=== PATIENT | male | born 1985 | race Caucasian/White ===

== ENCOUNTER 2022-04-14 15:57 | Inpatient (IN) ==
[2022-04-14 16:32] LABS: BASOPHILS % (AUTO) 0.2 % (0.2-1.0); EOSINOPHILS % (AUTO) 0.1 % (0.9-2.9); HEMATOCRIT 47.1 % (42.0-54.0); HEMOGLOBIN 16.3 g/dL (13.5-18.0); LYMPHOCYTES # (AUTO) 0.6 X10^3/uL (1.3-2.9); MEAN CORPUSCULAR HGB CONC 34.5 g/dL (33.0-35.0); MEAN PLATELET VOLUME 10.1 fL (7.4-11.0); MONOCYTES # (AUTO) 0.9 x10^3/uL (0.3-0.8); MONOCYTES % (AUTO) 4.4 % (0.0-13.0); NEUTROPHILS # (AUTO) 18.8 x10^3/uL (2.2-4.8); NEUTROPHILS % (AUTO) 92.3 % (42.0-75.0); RED BLOOD COUNT 5.42 X10^6/uL (4.7-6.0); RED CELL DISTRIBUTION WIDTH 13.3 % (11.6-16.5); WHITE BLOOD COUNT 20.4 X10^3/uL (3.6-10.0)
[2022-04-14 16:45] LABS: PLATELET MORPHOLOGY COMMENT NORMAL (NORMAL)
[2022-04-14] MEDS ORDERED: ZOFRAN INJ 4 MG VIAL IVP ONE (16:52)
[2022-04-14] MEDS ORDERED: MORPHINE SULFATE INJ 2 MG INJ IVP ONE (16:52)
[2022-04-14] MEDS ORDERED: ZOFRAN INJ 4 MG VIAL ONE (16:55)
[2022-04-14] MEDS ORDERED: MORPHINE SULFATE INJ 2 MG INJ ONE (16:55)
--- NOTE | 2022-04-14 17:10 | DR.ABDMALE ---
HPI Time seen Time Seen by Provider: 04/14/22 17:08 PCP Primary Care Physician: JOYCE OLSON HPI comment HPI Comment: A 37 y/o male presenting with c/o epigastric pain onset early hours this a.m. He had an outpt. abd./pelvic CT Scan done today that was interpreted as showing mild dilatation of the GB with fat stranding, to suspect cholecystitis. His provider asked him to go to the ED, thus he came over here. Complaint Chief Complaint:: PT. C/O UPPER ABDOMINAL PAIN THAT RADIATES THROUGH TO BACK. P T. HAD AN OUT PATIENT CT SCAN DONE TODAY IN [facility] WHICH SHOWS MILDLY DILATED GALLBLADDER WITH FAT STRADNING AND TO SUSPECT CHOLECYSTITIS. PT. ALSO C/O NAUSEA/VOMITING. Self Treatment fo Chief Complaint: SEEN PCP IN OFFICE, OUT PATIENT CT SCAN, ROSE SERRANO COVID-19 Coronavirus risk:travel/contact w/high risk person: No Has patient experienced Coronavirus symptoms: No Reviewed Nurses Notes Review: Yes Mode of arrival Mode of Arrival: Ambulatory Timing Onset of Chief Complaint: 04/14/22 Came on: Suddenly Location Location: Epigastric Modifying factors Worsening Factors: Nothing Improving Factors: Nothing PMH PMH Past Medical History: Yes Past Medical History: GERD Past Surgical History: Yes Surgical History: Ortho Surgery Family History History of Family Medical Conditions: No Social History Does patient currently use any type of tobacco product: No Have you used tobacco products in the last 12 months: No Type of Tobacco Use: None Does any household member use tobacco: No Alcohol Use: None Do you use any recreational Drugs:: No Lives With: Spouse Lives Where: Home Travel Risk Coronavirus risk:travel/contact w/high risk person: No Has patient experienced Coronavirus symptoms: No Infectious screening In the last 2 months have you had wt loss of >10#?: NO Have you had fever, night sweats or hemotysis?: No Have you traveled outside the country in the last 6 months?: No Isolation: Standard ROS Review of Systems Constitutional: No Symptoms Reported Eyes: No Symptoms Reported ENTM: No Symptoms Reported Respiratoy: No Symptoms Reported Cardiovascular: No Symptoms Reported Gastrointestinal/Abdominal: Abdominal Pain Genitourinary: No Symptoms Reported Neurological: No Symptoms Reported Musculoskeletal: No Symptoms Reported Integumentary: No Symptoms Reported Hematologic/Lymphatic: No Symptoms Reported Endocrine: No Symptoms Reported Psychiatric: No Symptoms Reported All Other Systems: Reviewed and Negative PE Vital Signs Vital Signs: Temp Pulse Pulse Resp BP BP BP 04/28/15 07:52 142/74 04/28/15 07:02 142/74 04/16/22 08:00 97.8 F 105 H 20 119/68 04/16/22 08:27 04/16/22 08:15 18 04/16/22 07:04 19 04/16/22 06:04 19 04/16/22 04:27 19 04/16/22 04:00 98.4 F 106 H 20 118/73 04/16/22 03:57 19 04/16/22 00:00 98.8 F 105 H 18 120/68 04/15/22 19:50 99.4 F 114 H 19 118/69 04/15/22 18:50 99.0 F 110 H 19 123/83 04/15/22 20:00 98.9 F 113 H 20 114/66 04/15/22 20:04 19 04/15/22 19:00 04/15/22 19:04 19 04/15/22 18:06 99.3 F 118 H 18 118/68 04/15/22 16:58 98.8 F 118 H 18 139/78 04/15/22 15:50 98.6 F 124 H 18 140/81 04/15/22 15:35 98.6 F 126 H 18 144/79 04/15/22 15:20 98.8 F 122 H 18 141/80 04/15/22 15:05 99.4 F 121 H 18 126/56 04/15/22 14:50 99.4 F 120 H 18 131/74 04/15/22 14:39 121 H 18 130/70 04/15/22 14:34 123 H 18 134/74 04/15/22 14:29 120 H 18 127/69 04/15/22 14:24 124 H 18 128/69 04/15/22 14:19 123 H 16 127/69 04/15/22 14:14 120 H 17 123/62 04/15/22 14:09 98.0 F 121 H 17 119/60 04/15/22 12:19 20 04/15/22 11:50 142 H 18 147/82 04/15/22 08:34 22 04/15/22 08:00 98.1 F 127 H 18 135/86 04/15/22 07:00 04/15/22 08:04 22 04/15/22 04:00 22 04/15/22 04:00 99.7 F H 154 H 22 128/72 04/15/22 04:30 22 04/15/22 04:00 22 04/15/22 02:34 18 04/15/22 02:04 18 04/15/22 01:00 144/86 04/15/22 00:00 98.8 F 134 H 18 148/92 04/14/22 22:05 20 04/14/22 20:00 101.3 F H 140 H 20 143/92 04/14/22 19:33 04/14/22 21:35 21 04/14/22 17:39 17 04/14/22 15:57 97.4 F L 123 H 20 141/94 Pulse Ox O2 Del Method 04/28/15 07:52 04/28/15 07:02 04/16/22 08:00 97 Room Air 04/16/22 08:27 Room Air 04/16/22 08:15 04/16/22 07:04 04/16/22 06:04 04/16/22 04:27 04/16/22 04:00 96 Room Air 04/16/22 03:57 04/16/22 00:00 95 Room Air 04/15/22 19:50 97 Room Air 04/15/22 18:50 97 Room Air 04/15/22 20:00 98 Room Air 04/15/22 20:04 04/15/22 19:00 Room Air 04/15/22 19:04 04/15/22 18:06 96 Room Air 04/15/22 16:58 96 Room Air 04/15/22 15:50 94 L Room Air 04/15/22 15:35 95 Room Air 04/15/22 15:20 98 Room Air 04/15/22 15:05 98 Room Air 04/15/22 14:50 97 Room Air 04/15/22 14:39 97 Nasal Cannula 04/15/22 14:34 97 Nasal Cannula 04/15/22 14:29 95 Nasal Cannula 04/15/22 14:24 95 Nasal Cannula 04/15/22 14:19 94 L 04/15/22 14:14 97 04/15/22 14:09 96 09/22/22 12:19 04/15/22 11:50 95 Room Air 04/15/22 08:34 04/15/22 08:00 97 Room Air 04/15/22 07:00 Room Air 04/15/22 08:04 04/15/22 04:00 04/15/22 04:00 92 L Room Air 04/15/22 04:30 04/15/22 04:00 04/15/22 02:34 04/15/22 02:04 04/15/22 01:00 04/15/22 00:00 96 Room Air 04/14/22 22:05 04/14/22 20:00 98 Room Air 04/14/22 19:33 Room Air 04/14/22 21:35 04/14/22 17:39 04/14/22 15:57 100 Room Air General Limitations: No Limitations General Appearance: Alert and In No Apparent Distress Head Head Exam: Normal Inspection, Atraumatic and Normocephalic Eyes Eye exam: Normal Appearance and EOMI ENT ENT Exam: Normal Exam, Normal Oropharynx, Normal External Ear Exam and Mucous Membranes Moist Neck Neck Exam: Normal Inspection, Full ROM and Trachea Midline Chest Chest Inspection: Normal Inspection and Symmetric Chest Wall Rise Respiratory Respiratory Exam: Normal Lung Sounds Bilat Cardiovascular Cardiovascular Exam: Regular Rate, Normal Rhythm, Normal Heart Sounds, +S1 and +S2 Abdominal Exam Abdominal Exam: Normal Inspection, Normal Bowel Sounds and Soft; negative Distention, Tenderness, Guarding, Rebound, Rigidity, Dimnished Bowel Sounds, Hyperactive Bowel Sounds, Hypoactive Bowel Sounds, Organomegaly, Trauma, Incision, Ascites, Mass, Bruit, Pulsatile Mass or Hernia Rectal Rectal Exam: Deferred Back Back Exam: Normal Inspection and Full ROM Extremeties Extremities Exam: Normal Inspection and Full ROM Exam: Male: Deferred Neurologic Neurological Exam: Alert and Oriented X3 Psychiatric Psychiatric Exam: Normal Affect and Normal Mood Skin Skin Exam: Dry, Intact and Normal Color COURSE Treatment Treatment: I discussed the case/presentation with our staff surgeon (Dr. Brown), he suggested admitting the pt. Admit orders have been written after discussing recommendations with the pt. Reevaluation 1st: Unchanged Education/Counseling Education/Counseling: Patient, Education and Counseling Educated On: Treatment, Diagnosis, Prognosis and Needs for Follow Up ROR Labs Reviewed Result Diagrams: 04/18/22 05:10 04/18/22 05:10 Laboratory: 04/14/22 23:05 Blood Blood Culture - Final 04/14/22 23:00 Blood Blood Culture - Final WBC 16.9 X10^3/uL (3.6-10.0) H 04/16/22 05:16 RBC 4.51 X10^6/uL (4.7-6.0) L 04/16/22 05:16 Hgb 13.4 g/dL (13.5-18.0) L D 04/16/22 05:16 Hct 38.9 % (42.0-54.0) L 04/16/22 05:16 MCV 86.4 fL (80.0-100.0) 04/16/22 05:16 MCH 29.7 pg (27.0-34.0) 04/16/22 05:16 MCHC 34.3 g/dL (33.0-35.0) 04/16/22 05:16 RDW 13.6 % (11.6-16.5) 04/16/22 05:16 Plt Count 112 X10^3/uL (150.0-450.0) L 04/16/22 05:16 Plt Count Comment Decreased (ADEQUATE) 04/16/22 05:16 MPV 10.5 fL (7.4-11.0) 04/16/22 05:16 Neut % (Auto) 92.9 % (42.0-75.0) H 04/16/22 05:16 Lymph % (Auto) 1.7 % (21.0-51.0) L 04/16/22 05:16 [place] % (Auto) 4.8 % (0.0-13.0) 04/16/22 05:16 Eos % (Auto) 0.5 % (0.9-2.9) L 04/16/22 05:16 Baso % (Auto) 0.1 % (0.2-1.0) L 04/16/22 05:16 Neut # (Auto) 15.7 x10^3/uL (2.2-4.8) H 04/16/22 05:16 Lymph # (Auto) 0.3 X10^3/uL (1.3-2.9) L 04/16/22 05:16 [place] # (Auto) 0.8 x10^3/uL (0.3-0.8) 04/16/22 05:16 Eos # (Auto) 0.1 x10^3/uL (0.0-0.2) 04/16/22 05:16 Baso # (Auto) 0.0 X10^3/uL (0.0-0.1) 04/16/22 05:16 Absolute Nucleated RBC 0.0 /100WBC 04/16/22 05:16 Total Counted 100 04/16/22 05:16 Neutrophils % (Manual) 72 % (39-76) 04/16/22 05:16 Band Neutrophils % 22 % (0-10) H 04/16/22 05:16 Lymphocytes % (Manual) 2 % (13-43) L 04/16/22 05:16 Monocytes % (Manual) 4 % (4-9) 04/16/22 05:16 Plt Morphology Comment Normal (NORMAL) 04/16/22 05:16 RBC Morphology Normal (NORMAL) 04/16/22 05:16 Sodium 136 mmol/L (136-145) 04/16/22 05:16 Corrected Sodium 136 mmol/L (136-145) 04/16/22 05:16 Potassium 3.8 mmol/L (3.5-5.1) 04/16/22 05:16 Chloride 100 mmol/L (98-107) 04/16/22 05:16 Carbon Dioxide 32.8 mmol/L (21-32) H 04/16/22 05:16 BUN 12 mg/dL (7-18) 04/16/22 05:16 Creatinine 1.01 mg/dL (0.70-1.30) 04/16/22 05:16 Est GFR (MDRD) Af Amer > 60 (>60) 04/16/22 05:16 Est GFR (MDRD) Non-Af > 60 (>60) 04/16/22 05:16 Glucose 111 mg/dL (65-99) H 04/16/22 05:16 Calcium 7.8 mg/dL (8.5-10.1) L 04/16/22 05:16 Corrected Calcium 8.8 mg/dL (8.5-10.1) 04/16/22 05:16 Magnesium 1.5 mg/dL (1.7-2.9) L 04/16/22 05:16 Total Bilirubin 4.50 mg/dL (0.2-1.0) H 04/16/22 05:16 AST 88 Units/L (15-37) H 04/16/22 05:16 ALT 153 Units/L (12-78) H 04/16/22 05:16 Alkaline Phosphatase 110 Units/L (46-116) 04/16/22 05:16 Total Protein 5.9 g/dL (6.4-8.2) L 04/16/22 05:16 Albumin 2.7 g/dL (3.4-5.0) L 04/16/22 05:16 Globulin 3.2 g/dL (2.5-4.5) 04/16/22 05:16 Albumin/Globulin Ratio 0.8 Ratio (1.1-2.1) L 04/16/22 05:16 Amylase 39 Units/L (25-115) 04/14/22 16:46 Lipase 77 Units/L (73-393) 04/14/22 16:46 Free T4 1.68 ng/dL (0.76-1.46) H 04/15/22 05:48 Thyroxine (T4) 12.8 ug/dL (4.7-13.3) 04/15/22 05:48 TSH 3rd Generation 0.856 uIU/mL (0.358-3.74) 04/15/22 05:48 Specimen Type Clean catch urine 04/14/22 17:54 Urine Color Yellow (YELLOW) 04/14/22 17:54 Urine Appearance Clear (CLEAR) 04/14/22 17:54 Urine pH 5.0 (5.0 - 8.0) 04/14/22 17:54 Ur Specific [place] 1.025 (1.000-1.030) 04/14/22 17:54 Urine Protein 1+ (NEGATIVE) 04/14/22 17:54 Urine Glucose (UA) Negative (NEGATIVE) 04/14/22 17:54 Urine Ketones 3+ (NEGATIVE) 04/14/22 17:54 Urine Blood 1+ (NEGATIVE) 04/14/22 17:54 Urine Nitrite Negative (NEGATIVE) 04/14/22 17:54 Urine Bilirubin Negative (NEGATIVE) 04/14/22 17:54 Urine Urobilinogen Normal (NORMAL) 04/14/22 17:54 Ur Leukocyte Esterase Negative (NEGATIVE) 04/14/22 17:54 Urine RBC 0-2 /HPF (0-3) 04/14/22 17:54 Urine WBC 0-2 /HPF (0-5) 04/14/22 17:54 Ur Squamous Epith Cells Rare /HPF (NEGATIVE) 04/14/22 17:54 Urine Bacteria Negative /HPF (NEGATIVE) 04/14/22 17:54 Urine Mucus Few /HPF (NEGATIVE) 04/14/22 17:54 Ur Culture Indicated? No/not indicated 04/14/22 17:54 SARS-CoV-2 (PCR) Negative (NEGATIVE) 04/14/22 17:54 Influenza Type A (PCR) Negative (NEGATIVE) 04/14/22 17:54 Influenza Type B (PCR) Negative (NEGATIVE) 04/14/22 17:54 RSV (PCR) Negative (NEGATIVE) 04/14/22 17:54 Tissue Pathology To follow 04/15/22 13:38 Opioid Opioid Risk Tool Age (Blayne box if 16-45): Yes History of Preadolescent Sexual Abuse: No Total: 1 Total Score Risk Category: Low Risk Copyright: [facility] predicting aberrant behaviors Discharge Plan Diagnosis Discharge Problem: Abdominal pain, epigastric Discharge Plan Patient Disposition: ADMITTED INPATIENT Condition: Stable ADDITIONAL NOTES Additional Notes Additional Notes: Name: JERRI ALTAMIRANO#: [id number]: [id number]: 1985Sex: MLocation: EROrder Number(s): [id number](s):GALL BLADDER Ordering Physician: NATHANIEL ESTEBAN Primary Care: JOYCE OLSON Service Date: 04/14/22 Service Time: 1653 HISTORY Upper abdominal pain STUDY GALL BLADDER COMPARISON None TECHNIQUE Multiple nina scale and color flow Doppler images of the right upper quadrant of the abdomen were obtained. FINDINGS PANCREAS: Partially obscured but grossly unremarkable. LIVER: Liver is normal in size. No significant abnormality. PORTAL VEIN: Normal hepatopetal flow in the main portal vein. GALLBLADDER: No significant abnormality. BILE DUCTS: Common bile duct measures 2 mm. RIGHT KIDNEY:No significant abnormality OTHER FINDINGS:None IMPRESSION No significant sonographic abnormality of the right upper quadrant Electronically signed by: Kenney Shearer (Apr 14, 2022 17:41:30) Report Electronically signed: 04/14/22 [id number] CC: Nathaniel Esteban
[2022-04-14 17:18] LABS: ALANINE AMINOTRANSFERASE 23 Units/L (12-78); ALBUMIN 4.4 g/dL (3.4-5.0); ALKALINE PHOSPHATASE 94 Units/L (46-116); AMYLASE 39 Units/L (25-115); ASPARTATE AMINO TRANSFERASE 20 Units/L (15-37); BLOOD UREA NITROGEN 8 mg/dL (7-18); CALCIUM 8.7 mg/dL (8.5-10.1); CARBON DIOXIDE 30.9 mmol/L (21-32); CHLORIDE 104 mmol/L (98-107); COR NA(FOR HYPERGLY) 140 mmol/L (136-145); CREATININE 0.81 mg/dL (0.70-1.30); LIPASE 77 Units/L (73-393); SODIUM 140 mmol/L (136-145); TOTAL PROTEIN 7.7 g/dL (6.4-8.2); eGFR NON BLACK RACES > 60 (>60)
--- NOTE | 2022-04-14 17:43 | US ---
HISTORYUpper abdominal painSTUDYGALL BLADDERCOMPARISONNoneTECHNIQUEMultiple nina scale and color flow Doppler images of the right upper quadrant of the abdomen were obtained.FINDINGSPANCREAS: Partially obscured but grossly unremarkable.LIVER: Liver is normal in size. No significant abnormality.PORTAL VEIN: Normal hepatopetal flow in the main portal vein.GALLBLADDER: No significant abnormality.BILE DUCTS: Common bile duct measures 2 mm.RIGHT KIDNEY:No significant abnormalityOTHER FINDINGS:NoneIMPRESSIONNo significant sonographic abnormality of the right upper quadrantElectronically signed by: Kenney Shearer (Apr 14, 2022 17:41:30)
[2022-04-14 18:16] LABS: BILIRUBIN,URINE NEGATIVE (NEGATIVE); BLOOD/HEMOGLOBIN,URINE 1+ (NEGATIVE); GLUCOSE, URINE NEGATIVE (NEGATIVE); KETONES,URINE 3+ (NEGATIVE); LEUKOCYTE ESTERASE ,URINE NEGATIVE (NEGATIVE); NITRITES,URINE NEGATIVE (NEGATIVE); PROTEIN,URINE 1+ (NEGATIVE); UROBILINOGEN,URINE NORMAL (NORMAL)
[2022-04-14 18:20] LABS: APPEARANCE,URINE CLEAR (CLEAR); COLOR,URINE YELLOW (YELLOW)
[2022-04-14 18:29] LABS: RBC,URINE 0-2 /HPF (0-3)
[2022-04-14 18:30] LABS: BACTERIA,URINE NEGATIVE /HPF (NEGATIVE); SQUAMOUS EPITHELIAL CELL,UR RARE /HPF (NEGATIVE)
[2022-04-14] MEDS: D5 1/2 NS 1,000 ML 1,000 ML IV SCH (21:34)
[2022-04-14] MEDS: DILAUDID INJ IVP PRN (21:35)
[2022-04-14] MEDS: ZOFRAN INJ 4 MG VIAL IVP PRN (21:38)
[2022-04-14] MEDS: LEVAQUIN PREMIX IV 500 MG 500 MG/100 ML BAG IV SCH (21:40)
[2022-04-15] MEDS ORDERED: CATAPRES TAB 0.1 MG PO ONE (00:19)
[2022-04-15 00:34] VITALS: BMI 26.5
[2022-04-15] MEDS: DILAUDID INJ IVP PRN (02:04)
[2022-04-15] MEDS: ZOFRAN INJ 4 MG VIAL IVP PRN ×2 (02:05→22:43)
[2022-04-15] MEDS: MORPHINE SULFATE INJ 2 MG INJ IVP PRN ×2 (04:00→08:04)
[2022-04-15] MEDS ORDERED: MORPHINE SULFATE INJ 4 MG ONE (04:02)
[2022-04-15] MEDS: D5 1/2 NS 1,000 ML 1,000 ML IV SCH ×5 (05:47→23:07)
[2022-04-15 06:31] LABS: BASOPHILS % (AUTO) 0.1 % (0.2-1.0); HEMOGLOBIN 15.7 g/dL (13.5-18.0); LYMPHOCYTES # (AUTO) 0.4 X10^3/uL (1.3-2.9); LYMPHOCYTES % (AUTO) 2.6 % (21.0-51.0); MEAN CORPUSCULAR HEMOGLOBIN 30.6 pg (27.0-34.0); MEAN CORPUSCULAR HGB CONC 35.6 g/dL (33.0-35.0); MEAN PLATELET VOLUME 10.7 fL (7.4-11.0); MONOCYTES # (AUTO) 0.3 x10^3/uL (0.3-0.8); MONOCYTES % (AUTO) 2.1 % (0.0-13.0); NEUTROPHILS # (AUTO) 14.7 x10^3/uL (2.2-4.8); NEUTROPHILS % (AUTO) 95.2 % (42.0-75.0); RED BLOOD COUNT 5.12 X10^6/uL (4.7-6.0); RED CELL DISTRIBUTION WIDTH 13.3 % (11.6-16.5); WHITE BLOOD COUNT 15.4 X10^3/uL (3.6-10.0)
[2022-04-15 06:36] LABS: ALANINE AMINOTRANSFERASE 190 Units/L (12-78); ALBUMIN 3.6 g/dL (3.4-5.0); ALKALINE PHOSPHATASE 141 Units/L (46-116); ASPARTATE AMINO TRANSFERASE 261 Units/L (15-37); BLOOD UREA NITROGEN 11 mg/dL (7-18); CARBON DIOXIDE 27.3 mmol/L (21-32); COR NA(FOR HYPERGLY) 138 mmol/L (136-145); CREATININE 0.95 mg/dL (0.70-1.30); SODIUM 137 mmol/L (136-145); eGFR NON BLACK RACES > 60 (>60)
[2022-04-15 07:09] LABS: CHLORIDE 100 mmol/L (98-107)
[2022-04-15 07:53] LABS: BAND NEUTROPHILS % 12 % (0-10); PLATELET MORPHOLOGY COMMENT NORMAL (NORMAL)
--- NOTE | 2022-04-15 08:29 | DR.PROGNOT ---
Hospital Progress Notes - Progress Note for Day of: Progress Note Date: 04/15/22 - Chief Complaint Chief Complaint: was having severe pain last night required strong narcotics .. his Bilirubin and liver enzymes went up . maybe passed stone in the CBD . Bilir 3.3... WBC 15.4. had low grade fever . - Past Medical Family Social History Past Med/Fam/Surg Hx: No changes since H&P Allergies: Allergies No Known Drug Allergies Allergy (Verified 04/14/22 16:00) - Review Of Systems ROS: No change since H&P - Vital Signs Vital Signs: Temperature 99.7 F Pulse Rate [Right Radial] 154 Pulse Rate 123 Respiratory Rate 22 Blood Pressure [Left Arm] 128/72 Blood Pressure 141/94 O2 Sat by Pulse Oximetry 92 - Physical Exam Oriented: Normal Eyes: Other (mild jaundice ..) Ear: Normal Nose: Normal Throat: Normal Respiratory: Normal Cardiovascular: Normal : Normal GI:Auscultation: Normal GI: Tenderness: RUQ (soft abdomen with RUQ and epigastric tenderness .. BS hypoactive ..) Speech Pattern: Clear, Appropriate - Laboratory and Diagnostics Result Diagrams: 04/15/22 05:48 04/15/22 05:48 Labs: Laboratory WBC 15.4 X10^3/uL (3.6-10.0) H 04/15/22 05:48 RBC 5.12 X10^6/uL (4.7-6.0) 04/15/22 05:48 Hgb 15.7 g/dL (13.5-18.0) 04/15/22 05:48 Hct 44.0 % (42.0-54.0) 04/15/22 05:48 MCV 86.0 fL (80.0-100.0) 04/15/22 05:48 MCH 30.6 pg (27.0-34.0) 04/15/22 05:48 MCHC 35.6 g/dL (33.0-35.0) H 04/15/22 05:48 RDW 13.3 % (11.6-16.5) 04/15/22 05:48 Plt Count 140 X10^3/uL (150.0-450.0) L 04/15/22 05:48 Plt Count Comment Decreased (ADEQUATE) 04/15/22 05:48 MPV 10.7 fL (7.4-11.0) 04/15/22 05:48 Neut % (Auto) 95.2 % (42.0-75.0) H 04/15/22 05:48 Lymph % (Auto) 2.6 % (21.0-51.0) L 04/15/22 05:48 [place] % (Auto) 2.1 % (0.0-13.0) 04/15/22 05:48 Eos % (Auto) 0.0 % (0.9-2.9) L 04/15/22 05:48 Baso % (Auto) 0.1 % (0.2-1.0) L 04/15/22 05:48 Neut # (Auto) 14.7 x10^3/uL (2.2-4.8) H 04/15/22 05:48 Lymph # (Auto) 0.4 X10^3/uL (1.3-2.9) L 04/15/22 05:48 [place] # (Auto) 0.3 x10^3/uL (0.3-0.8) 04/15/22 05:48 Eos # (Auto) 0.0 x10^3/uL (0.0-0.2) 04/15/22 05:48 Baso # (Auto) 0.0 X10^3/uL (0.0-0.1) 04/15/22 05:48 Absolute Nucleated RBC 0.1 /100WBC 04/15/22 05:48 Total Counted 100 04/15/22 05:48 Neutrophils % (Manual) 82 % (39-76) H 04/15/22 05:48 Band Neutrophils % 12 % (0-10) H 04/15/22 05:48 Lymphocytes % (Manual) 4 % (13-43) L 04/15/22 05:48 Monocytes % (Manual) 2 % (4-9) L 04/15/22 05:48 Plt Morphology Comment Normal (NORMAL) 04/15/22 05:48 RBC Morphology Normal (NORMAL) 04/15/22 05:48 Sodium 137 mmol/L (136-145) 04/15/22 05:48 Corrected Sodium 138 mmol/L (136-145) 04/15/22 05:48 Potassium 3.0 mmol/L (3.5-5.1) L 04/15/22 05:48 Chloride 100 mmol/L (98-107) 04/15/22 05:48 Carbon Dioxide 27.3 mmol/L (21-32) 04/15/22 05:48 BUN 11 mg/dL (7-18) 04/15/22 05:48 Creatinine 0.95 mg/dL (0.70-1.30) 04/15/22 05:48 Est GFR (MDRD) Af Amer > 60 (>60) 04/15/22 05:48 Est GFR (MDRD) Non-Af > 60 (>60) 04/15/22 05:48 Glucose 122 mg/dL (65-99) H 04/15/22 05:48 Calcium 8.0 mg/dL (8.5-10.1) L 04/15/22 05:48 Corrected Calcium TNP 04/15/22 05:48 Magnesium 1.3 mg/dL (1.7-2.9) L 04/15/22 05:48 Total Bilirubin 3.30 mg/dL (0.2-1.0) H 04/15/22 05:48 AST 261 Units/L (15-37) H 04/15/22 05:48 ALT 190 Units/L (12-78) H 04/15/22 05:48 Alkaline Phosphatase 141 Units/L (46-116) H 04/15/22 05:48 Total Protein 7.0 g/dL (6.4-8.2) 04/15/22 05:48 Albumin 3.6 g/dL (3.4-5.0) 04/15/22 05:48 Globulin 3.4 g/dL (2.5-4.5) 04/15/22 05:48 Albumin/Globulin Ratio 1.1 Ratio (1.1-2.1) 04/15/22 05:48 Amylase 39 Units/L (25-115) 04/14/22 16:46 Lipase 77 Units/L (73-393) 04/14/22 16:46 Specimen Type Clean catch urine 04/14/22 17:54 Urine Color Yellow (YELLOW) 04/14/22 17:54 Urine Appearance Clear (CLEAR) 04/14/22 17:54 Urine pH 5.0 (5.0 - 8.0) 04/14/22 17:54 Ur Specific [place] 1.025 (1.000-1.030) 04/14/22 17:54 Urine Protein 1+ (NEGATIVE) 04/14/22 17:54 Urine Glucose (UA) Negative (NEGATIVE) 04/14/22 17:54 Urine Ketones 3+ (NEGATIVE) 04/14/22 17:54 Urine Blood 1+ (NEGATIVE) 04/14/22 17:54 Urine Nitrite Negative (NEGATIVE) 04/14/22 17:54 Urine Bilirubin Negative (NEGATIVE) 04/14/22 17:54 Urine Urobilinogen Normal (NORMAL) 04/14/22 17:54 Ur Leukocyte Esterase Negative (NEGATIVE) 04/14/22 17:54 Urine RBC 0-2 /HPF (0-3) 04/14/22 17:54 Urine WBC 0-2 /HPF (0-5) 04/14/22 17:54 Ur Squamous Epith Cells Rare /HPF (NEGATIVE) 04/14/22 17:54 Urine Bacteria Negative /HPF (NEGATIVE) 04/14/22 17:54 Urine Mucus Few /HPF (NEGATIVE) 04/14/22 17:54 Ur Culture Indicated? No/not indicated 04/14/22 17:54 SARS-CoV-2 (PCR) Negative (NEGATIVE) 04/14/22 17:54 Influenza Type A (PCR) Negative (NEGATIVE) 04/14/22 17:54 Influenza Type B (PCR) Negative (NEGATIVE) 04/14/22 17:54 RSV (PCR) Negative (NEGATIVE) 04/14/22 17:54 - Assessment and Plan 2: acute cholecystitis . possible CBD stone . liver dysfunction .( changed from yesterday ). on IV antibiotics .. for lap torsten today ..
[2022-04-15] MEDS ORDERED: POLYMYXIN B SULFATE ONE ×2 (11:18→13:30)
[2022-04-15] MEDS ORDERED: BACTROBAN TOPICAL OINT ONE (11:18)
[2022-04-15] MEDS ORDERED: ANCEF VIAL 1 GRAM ONE (11:42)
[2022-04-15] MEDS ORDERED: LR 1,000 ML IV 1,000 ML IV ONE ×2 (11:42→12:15)
[2022-04-15] MEDS ORDERED: NS 100 ML IV 100 ML ONE (11:42)
[2022-04-15] MEDS ORDERED: FENTANYL VIAL INJ 250 mcg ONE (11:44)
[2022-04-15] MEDS ORDERED: VERSED ONE (11:44)
[2022-04-15] MEDS ORDERED: PEPCID 20 MG VIAL ONE (11:45)
[2022-04-15] MEDS ORDERED: DIPRIVAN VIAL 20 ML ONE (11:45)
[2022-04-15] MEDS ORDERED: OFIRMEV IV 1000 MG VIAL 1,000 MG/100 ML VIAL IV ONE (11:45)
[2022-04-15] MEDS ORDERED: ZOFRAN INJ 4 MG VIAL ONE (11:45)
[2022-04-15] MEDS ORDERED: TORADOL 30 MG VIAL ONE (11:45)
[2022-04-15] MEDS ORDERED: BRIDION ONE (11:45)
[2022-04-15] MEDS ORDERED: ZEMURON 100 MG VIAL ONE (11:45)
[2022-04-15] MEDS ORDERED: XYLOCAINE 2 % (PLAIN) ONE (11:59)
[2022-04-15] MEDS ORDERED: XYLOCAINE JELLY TOP ONE (12:04)
[2022-04-15] MEDS ORDERED: SUPRANE ONE ×2 (12:04→12:19)
[2022-04-15] MEDS ORDERED: NS 1,000 ML IV 1,000 ML ONE ×2 (12:07→13:43)
[2022-04-15] MEDS ORDERED: BREVIBLOC ONE (12:41)
[2022-04-15] MEDS ORDERED: NEO-SYNEPHRINE INJ ONE (12:53)
[2022-04-15] MEDS ORDERED: ZOFRAN INJ 4 MG VIAL IVP PRN (14:15)
[2022-04-15] MEDS ORDERED: REGLAN INJ 10 MG VIAL IVP PRN (14:15)
[2022-04-15] MEDS ORDERED: BENADRYL INJ 50 MG VIAL IVP PRN (14:15)
[2022-04-15] MEDS ORDERED: DILAUDID INJ IVP PRN (14:15)
[2022-04-15] MEDS ORDERED: BARHEMSYS INJ IVP PRN (14:15)
[2022-04-15 17:04] LABS: FREE T4 (FREE THYROXINE) 1.68 ng/dL (0.76-1.46); T4 (THYROXINE) 12.8 ug/dL (4.7-13.3); TSH (3RD GENERATION) 0.856 uIU/mL (0.358-3.74)
[2022-04-15] MEDS ORDERED: POTASSIUM CHL 40 MEQ/NS 0.45% 500 ML IV PRN (17:16)
[2022-04-15] MEDS ORDERED: K-DUR TAB 20 MEQ PO PRN (17:16)
[2022-04-15] MEDS ORDERED: MICRO K EXTEN CAP 10 MEQ PO PRN (17:16)
[2022-04-15] MEDS ORDERED: KLOR-CON PO PRN (17:16)
[2022-04-15] MEDS ORDERED: POTASSIUM CHLORIDE LIQ 20 MEQ UDC PO PRN (17:16)
[2022-04-15] MEDS ORDERED: POTASSIUM CHL 60 MEQ/NS 0.45% 500 ML IV PRN (17:16)
[2022-04-15] MEDS: TYLENOL 325 MG TAB PO PRN (19:04)
[2022-04-15] MEDS: LEVAQUIN PREMIX IV 500 MG 500 MG/100 ML BAG IV SCH (20:18)
[2022-04-15] MEDS: FLAGYL IV PREMIX 500 MG BAG 500 MG/100 ML BAG IV SCH (21:37)
[2022-04-16] MEDS: D5 1/2 NS 1,000 ML 1,000 ML IV SCH ×5 (02:23→23:25)
[2022-04-16] MEDS: ZOFRAN INJ 4 MG VIAL IVP PRN ×3 (03:42→12:08)
[2022-04-16] MEDS: MORPHINE SULFATE INJ 2 MG INJ IVP PRN ×2 (03:57→20:23)
[2022-04-16] MEDS ORDERED: NS 100 ML IV 100 ML ONE (05:00)
[2022-04-16] MEDS: FLAGYL IV PREMIX 500 MG BAG 500 MG/100 ML BAG IV SCH ×3 (05:06→21:48)
[2022-04-16] MEDS: MAGNESIUM SULFATE 1 GRAM/100 mL PREMIX 1 G/100 ML BAG IV PRN ×2 (05:07→06:03)
[2022-04-16 05:55] LABS: BASOPHILS % (AUTO) 0.1 % (0.2-1.0); EOSINOPHILS # (AUTO) 0.1 x10^3/uL (0.0-0.2); EOSINOPHILS % (AUTO) 0.5 % (0.9-2.9); HEMATOCRIT 38.9 % (42.0-54.0); HEMOGLOBIN 13.4 g/dL (13.5-18.0); LYMPHOCYTES # (AUTO) 0.3 X10^3/uL (1.3-2.9); LYMPHOCYTES % (AUTO) 1.7 % (21.0-51.0); MEAN CORPUSCULAR HEMOGLOBIN 29.7 pg (27.0-34.0); MEAN CORPUSCULAR HGB CONC 34.3 g/dL (33.0-35.0); MEAN CORPUSCULAR VOLUME 86.4 fL (80.0-100.0); MEAN PLATELET VOLUME 10.5 fL (7.4-11.0); MONOCYTES # (AUTO) 0.8 x10^3/uL (0.3-0.8); MONOCYTES % (AUTO) 4.8 % (0.0-13.0); NEUTROPHILS # (AUTO) 15.7 x10^3/uL (2.2-4.8); NEUTROPHILS % (AUTO) 92.9 % (42.0-75.0); RED BLOOD COUNT 4.51 X10^6/uL (4.7-6.0); RED CELL DISTRIBUTION WIDTH 13.6 % (11.6-16.5); WHITE BLOOD COUNT 16.9 X10^3/uL (3.6-10.0)
[2022-04-16] MEDS: TYLENOL 325 MG TAB PO PRN ×3 (06:04→17:47)
[2022-04-16 06:06] LABS: ALANINE AMINOTRANSFERASE 153 Units/L (12-78); ALBUMIN 2.7 g/dL (3.4-5.0); ALKALINE PHOSPHATASE 110 Units/L (46-116); ASPARTATE AMINO TRANSFERASE 88 Units/L (15-37); BLOOD UREA NITROGEN 12 mg/dL (7-18); CALCIUM 7.8 mg/dL (8.5-10.1); CARBON DIOXIDE 32.8 mmol/L (21-32); CHLORIDE 100 mmol/L (98-107); COR CA(FOR HYPOALB) 8.8 mg/dL (8.5-10.1); COR NA(FOR HYPERGLY) 136 mmol/L (136-145); CREATININE 1.01 mg/dL (0.70-1.30); SODIUM 136 mmol/L (136-145); TOTAL PROTEIN 5.9 g/dL (6.4-8.2); eGFR NON BLACK RACES > 60 (>60)
[2022-04-16 06:31] LABS: BAND NEUTROPHILS % 22 % (0-10); PLATELET MORPHOLOGY COMMENT NORMAL (NORMAL)
[2022-04-16] MEDS: TORADOL TAB PO PRN ×2 (08:15→15:00)
[2022-04-16] MEDS: K-RIDER 10 MEQ/NS 100 ML 10 MEQ/100 ML BAG IV PRN ×2 (08:20→09:53)
--- NOTE | 2022-04-16 09:14 | DR.PROGNOT ---
Hospital Progress Notes - Progress Note for Day of: Progress Note Date: 04/16/22 - Chief Complaint Chief Complaint: abdominal pain is much better . c/o nausea and severe headach . mild drainage in JOSE. Bilirubn is 4.2. Alk Ph is normal . afebrile - Past Medical Family Social History Past Med/Fam/Surg Hx: No changes since H&P Allergies: Allergies No Known Drug Allergies Allergy (Verified 04/14/22 16:00) - Review Of Systems ROS: No change since H&P - Vital Signs Vital Signs: Temperature 98.4 F Pulse Rate [Right Radial] 106 Pulse Rate 121 Respiratory Rate 18 Blood Pressure [Right Arm] 118/73 Blood Pressure [Left Arm] 118/68 Blood Pressure 130/70 O2 Sat by Pulse Oximetry 96 - Physical Exam Oriented: Normal Eyes: Other (mild jaundice ..) Ear: Normal Nose: Normal Throat: Normal Respiratory: Normal Cardiovascular: Normal : Normal GI:Auscultation: Normal GI: Tenderness: RUQ (soft abdomen , mild diffuse abdominal tendernes .. BS+) Mood Description: Calm Speech Pattern: Clear, Appropriate - Laboratory and Diagnostics Result Diagrams: 04/16/22 05:16 04/16/22 05:16 Labs: Laboratory WBC 16.9 X10^3/uL (3.6-10.0) H 04/16/22 05:16 RBC 4.51 X10^6/uL (4.7-6.0) L 04/16/22 05:16 Hgb 13.4 g/dL (13.5-18.0) L D 04/16/22 05:16 Hct 38.9 % (42.0-54.0) L 04/16/22 05:16 MCV 86.4 fL (80.0-100.0) 04/16/22 05:16 MCH 29.7 pg (27.0-34.0) 04/16/22 05:16 MCHC 34.3 g/dL (33.0-35.0) 04/16/22 05:16 RDW 13.6 % (11.6-16.5) 04/16/22 05:16 Plt Count 112 X10^3/uL (150.0-450.0) L 04/16/22 05:16 Plt Count Comment Decreased (ADEQUATE) 04/16/22 05:16 MPV 10.5 fL (7.4-11.0) 04/16/22 05:16 Neut % (Auto) 92.9 % (42.0-75.0) H 04/16/22 05:16 Lymph % (Auto) 1.7 % (21.0-51.0) L 04/16/22 05:16 [place] % (Auto) 4.8 % (0.0-13.0) 04/16/22 05:16 Eos % (Auto) 0.5 % (0.9-2.9) L 04/16/22 05:16 Baso % (Auto) 0.1 % (0.2-1.0) L 04/16/22 05:16 Neut # (Auto) 15.7 x10^3/uL (2.2-4.8) H 04/16/22 05:16 Lymph # (Auto) 0.3 X10^3/uL (1.3-2.9) L 04/16/22 05:16 [place] # (Auto) 0.8 x10^3/uL (0.3-0.8) 04/16/22 05:16 Eos # (Auto) 0.1 x10^3/uL (0.0-0.2) 04/16/22 05:16 Baso # (Auto) 0.0 X10^3/uL (0.0-0.1) 04/16/22 05:16 Absolute Nucleated RBC 0.0 /100WBC 04/16/22 05:16 Total Counted 100 04/16/22 05:16 Neutrophils % (Manual) 72 % (39-76) 04/16/22 05:16 Band Neutrophils % 22 % (0-10) H 04/16/22 05:16 Lymphocytes % (Manual) 2 % (13-43) L 04/16/22 05:16 Monocytes % (Manual) 4 % (4-9) 04/16/22 05:16 Plt Morphology Comment Normal (NORMAL) 04/16/22 05:16 RBC Morphology Normal (NORMAL) 04/16/22 05:16 Sodium 136 mmol/L (136-145) 04/16/22 05:16 Corrected Sodium 136 mmol/L (136-145) 04/16/22 05:16 Potassium 3.8 mmol/L (3.5-5.1) 04/16/22 05:16 Chloride 100 mmol/L (98-107) 04/16/22 05:16 Carbon Dioxide 32.8 mmol/L (21-32) H 04/16/22 05:16 BUN 12 mg/dL (7-18) 04/16/22 05:16 Creatinine 1.01 mg/dL (0.70-1.30) 04/16/22 05:16 Est GFR (MDRD) Af Amer > 60 (>60) 04/16/22 05:16 Est GFR (MDRD) Non-Af > 60 (>60) 04/16/22 05:16 Glucose 111 mg/dL (65-99) H 04/16/22 05:16 Calcium 7.8 mg/dL (8.5-10.1) L 04/16/22 05:16 Corrected Calcium 8.8 mg/dL (8.5-10.1) 04/16/22 05:16 Magnesium 1.5 mg/dL (1.7-2.9) L 04/16/22 05:16 Total Bilirubin 4.50 mg/dL (0.2-1.0) H 04/16/22 05:16 AST 88 Units/L (15-37) H 04/16/22 05:16 ALT 153 Units/L (12-78) H 04/16/22 05:16 Alkaline Phosphatase 110 Units/L (46-116) 04/16/22 05:16 Total Protein 5.9 g/dL (6.4-8.2) L 04/16/22 05:16 Albumin 2.7 g/dL (3.4-5.0) L 04/16/22 05:16 Globulin 3.2 g/dL (2.5-4.5) 04/16/22 05:16 Albumin/Globulin Ratio 0.8 Ratio (1.1-2.1) L 04/16/22 05:16 Amylase 39 Units/L (25-115) 04/14/22 16:46 Lipase 77 Units/L (73-393) 04/14/22 16:46 Free T4 1.68 ng/dL (0.76-1.46) H 04/15/22 05:48 Thyroxine (T4) 12.8 ug/dL (4.7-13.3) 04/15/22 05:48 TSH 3rd Generation 0.856 uIU/mL (0.358-3.74) 04/15/22 05:48 Specimen Type Clean catch urine 04/14/22 17:54 Urine Color Yellow (YELLOW) 04/14/22 17:54 Urine Appearance Clear (CLEAR) 04/14/22 17:54 Urine pH 5.0 (5.0 - 8.0) 04/14/22 17:54 Ur Specific [place] 1.025 (1.000-1.030) 04/14/22 17:54 Urine Protein 1+ (NEGATIVE) 04/14/22 17:54 Urine Glucose (UA) Negative (NEGATIVE) 04/14/22 17:54 Urine Ketones 3+ (NEGATIVE) 04/14/22 17:54 Urine Blood 1+ (NEGATIVE) 04/14/22 17:54 Urine Nitrite Negative (NEGATIVE) 04/14/22 17:54 Urine Bilirubin Negative (NEGATIVE) 04/14/22 17:54 Urine Urobilinogen Normal (NORMAL) 04/14/22 17:54 Ur Leukocyte Esterase Negative (NEGATIVE) 04/14/22 17:54 Urine RBC 0-2 /HPF (0-3) 04/14/22 17:54 Urine WBC 0-2 /HPF (0-5) 04/14/22 17:54 Ur Squamous Epith Cells Rare /HPF (NEGATIVE) 04/14/22 17:54 Urine Bacteria Negative /HPF (NEGATIVE) 04/14/22 17:54 Urine Mucus Few /HPF (NEGATIVE) 04/14/22 17:54 Ur Culture Indicated? No/not indicated 04/14/22 17:54 SARS-CoV-2 (PCR) Negative (NEGATIVE) 04/14/22 17:54 Influenza Type A (PCR) Negative (NEGATIVE) 04/14/22 17:54 Influenza Type B (PCR) Negative (NEGATIVE) 04/14/22 17:54 RSV (PCR) Negative (NEGATIVE) 04/14/22 17:54 Tissue Pathology To follow 04/15/22 13:38 - Assessment and Plan 2: acute cholecystitis ,sepsis . s/p Lap torsten .. . liver dysfunction .. on IV antibiotics .. medical consut regarding tachycardia and possible hyperthyroidism .
[2022-04-16] MEDS ORDERED: MOTRIN TAB 800 MG PO PRN (12:15)
--- NOTE | 2022-04-16 13:59 | US ---
HISTORYHyperthyroidismSTUDYTHYROIDCOMPAR ISONNoneTECHNIQUETwenty-eight images made by the laboratory operations coordinator. [place] scale and color-flow images of the thyroid were obtained.FINDINGSRight lobe of the thyroid measures 47 x 12 x 16 mm. Left lobe of the thyroid measures 43 x 14 x 13 mm. Isthmus measures 3 mm. The thyroid is normal in size.In general echogenicity is uniform and homogeneous. Normal blood flow by color imaging.There are a few tiny nodules. One on the right side measures 4 mm. One on the left side measures 3 mm.No dominant nodule or mass.IMPRESSION1. Tiny thyroid nodulesElectronically signed by: Ranjith Branham (Apr 16, 2022 13:57:24)
[2022-04-16] MEDS: LEVAQUIN PREMIX IV 500 MG 500 MG/100 ML BAG IV SCH (20:23)
[2022-04-16] MEDS: PHENERGAN INJ 25 MG IM PRN (20:27)
[2022-04-17] MEDS: FLAGYL IV PREMIX 500 MG BAG 500 MG/100 ML BAG IV SCH ×3 (05:23→21:30)
[2022-04-17 06:25] LABS: BASOPHILS % (AUTO) 0.3 % (0.2-1.0); EOSINOPHILS # (AUTO) 0.1 x10^3/uL (0.0-0.2); EOSINOPHILS % (AUTO) 1.5 % (0.9-2.9); HEMATOCRIT 39.9 % (42.0-54.0); LYMPHOCYTES # (AUTO) 0.3 X10^3/uL (1.3-2.9); LYMPHOCYTES % (AUTO) 3.6 % (21.0-51.0); MEAN CORPUSCULAR HEMOGLOBIN 30.3 pg (27.0-34.0); MEAN CORPUSCULAR HGB CONC 35.1 g/dL (33.0-35.0); MEAN CORPUSCULAR VOLUME 86.2 fL (80.0-100.0); MEAN PLATELET VOLUME 10.4 fL (7.4-11.0); MONOCYTES # (AUTO) 0.3 x10^3/uL (0.3-0.8); MONOCYTES % (AUTO) 4.4 % (0.0-13.0); NEUTROPHILS # (AUTO) 6.8 x10^3/uL (2.2-4.8); NEUTROPHILS % (AUTO) 90.2 % (42.0-75.0); RED BLOOD COUNT 4.63 X10^6/uL (4.7-6.0); RED CELL DISTRIBUTION WIDTH 13.6 % (11.6-16.5); WHITE BLOOD COUNT 7.6 X10^3/uL (3.6-10.0)
--- NOTE | 2022-04-17 06:30 | DR.PROGNOT ---
Hospital Progress Notes - Progress Note for Day of: Progress Note Date: 04/17/22 - Chief Complaint Chief Complaint: feeling better today .. no nausea , no vomiting . mild drainage in JOSE . afebrile . - Past Medical Family Social History Past Med/Fam/Surg Hx: No changes since H&P Allergies: Allergies No Known Drug Allergies Allergy (Verified 04/14/22 16:00) - Review Of Systems ROS: No change since H&P - Vital Signs Vital Signs: Temperature 98.5 F Pulse Rate [Right Radial] 104 Pulse Rate 121 Respiratory Rate 18 Blood Pressure [Right Arm] 118/79 Blood Pressure [Left Arm] 118/68 Blood Pressure 130/70 O2 Sat by Pulse Oximetry 96 - Physical Exam Oriented: Normal Eyes: Other (mild jaundice ..) Ear: Normal Nose: Normal Throat: Normal Respiratory: Normal Cardiovascular: Normal : Normal GI:Auscultation: Normal GI: Tenderness: RUQ (soft abdomen , mild diffuse abdominal tendernes .. BS+) Mood Description: Calm Speech Pattern: Clear, Appropriate - Laboratory and Diagnostics Result Diagrams: 04/16/22 05:16 04/16/22 05:16 Labs: 04/14/22 23:05 Blood Blood Culture - Preliminary 04/14/22 23:00 Blood Blood Culture - Preliminary Laboratory WBC 16.9 X10^3/uL (3.6-10.0) H 04/16/22 05:16 RBC 4.51 X10^6/uL (4.7-6.0) L 04/16/22 05:16 Hgb 13.4 g/dL (13.5-18.0) L D 04/16/22 05:16 Hct 38.9 % (42.0-54.0) L 04/16/22 05:16 MCV 86.4 fL (80.0-100.0) 04/16/22 05:16 MCH 29.7 pg (27.0-34.0) 04/16/22 05:16 MCHC 34.3 g/dL (33.0-35.0) 04/16/22 05:16 RDW 13.6 % (11.6-16.5) 04/16/22 05:16 Plt Count 112 X10^3/uL (150.0-450.0) L 04/16/22 05:16 Plt Count Comment Decreased (ADEQUATE) 04/16/22 05:16 MPV 10.5 fL (7.4-11.0) 04/16/22 05:16 Neut % (Auto) 92.9 % (42.0-75.0) H 04/16/22 05:16 Lymph % (Auto) 1.7 % (21.0-51.0) L 04/16/22 05:16 [place] % (Auto) 4.8 % (0.0-13.0) 04/16/22 05:16 Eos % (Auto) 0.5 % (0.9-2.9) L 04/16/22 05:16 Baso % (Auto) 0.1 % (0.2-1.0) L 04/16/22 05:16 Neut # (Auto) 15.7 x10^3/uL (2.2-4.8) H 04/16/22 05:16 Lymph # (Auto) 0.3 X10^3/uL (1.3-2.9) L 04/16/22 05:16 [place] # (Auto) 0.8 x10^3/uL (0.3-0.8) 04/16/22 05:16 Eos # (Auto) 0.1 x10^3/uL (0.0-0.2) 04/16/22 05:16 Baso # (Auto) 0.0 X10^3/uL (0.0-0.1) 04/16/22 05:16 Absolute Nucleated RBC 0.0 /100WBC 04/16/22 05:16 Total Counted 100 04/16/22 05:16 Neutrophils % (Manual) 72 % (39-76) 04/16/22 05:16 Band Neutrophils % 22 % (0-10) H 04/16/22 05:16 Lymphocytes % (Manual) 2 % (13-43) L 04/16/22 05:16 Monocytes % (Manual) 4 % (4-9) 04/16/22 05:16 Plt Morphology Comment Normal (NORMAL) 04/16/22 05:16 RBC Morphology Normal (NORMAL) 04/16/22 05:16 Sodium 136 mmol/L (136-145) 04/16/22 05:16 Corrected Sodium 136 mmol/L (136-145) 04/16/22 05:16 Potassium 3.8 mmol/L (3.5-5.1) 04/16/22 05:16 Chloride 100 mmol/L (98-107) 04/16/22 05:16 Carbon Dioxide 32.8 mmol/L (21-32) H 04/16/22 05:16 BUN 12 mg/dL (7-18) 04/16/22 05:16 Creatinine 1.01 mg/dL (0.70-1.30) 04/16/22 05:16 Est GFR (MDRD) Af Amer > 60 (>60) 04/16/22 05:16 Est GFR (MDRD) Non-Af > 60 (>60) 04/16/22 05:16 Glucose 111 mg/dL (65-99) H 04/16/22 05:16 Calcium 7.8 mg/dL (8.5-10.1) L 04/16/22 05:16 Corrected Calcium 8.8 mg/dL (8.5-10.1) 04/16/22 05:16 Magnesium 1.5 mg/dL (1.7-2.9) L 04/16/22 05:16 Total Bilirubin 4.50 mg/dL (0.2-1.0) H 04/16/22 05:16 AST 88 Units/L (15-37) H 04/16/22 05:16 ALT 153 Units/L (12-78) H 04/16/22 05:16 Alkaline Phosphatase 110 Units/L (46-116) 04/16/22 05:16 Total Protein 5.9 g/dL (6.4-8.2) L 04/16/22 05:16 Albumin 2.7 g/dL (3.4-5.0) L 04/16/22 05:16 Globulin 3.2 g/dL (2.5-4.5) 04/16/22 05:16 Albumin/Globulin Ratio 0.8 Ratio (1.1-2.1) L 04/16/22 05:16 Amylase 39 Units/L (25-115) 04/14/22 16:46 Lipase 77 Units/L (73-393) 04/14/22 16:46 Free T4 1.68 ng/dL (0.76-1.46) H 04/15/22 05:48 Thyroxine (T4) 12.8 ug/dL (4.7-13.3) 04/15/22 05:48 TSH 3rd Generation 0.856 uIU/mL (0.358-3.74) 04/15/22 05:48 Specimen Type Clean catch urine 04/14/22 17:54 Urine Color Yellow (YELLOW) 04/14/22 17:54 Urine Appearance Clear (CLEAR) 04/14/22 17:54 Urine pH 5.0 (5.0 - 8.0) 04/14/22 17:54 Ur Specific [place] 1.025 (1.000-1.030) 04/14/22 17:54 Urine Protein 1+ (NEGATIVE) 04/14/22 17:54 Urine Glucose (UA) Negative (NEGATIVE) 04/14/22 17:54 Urine Ketones 3+ (NEGATIVE) 04/14/22 17:54 Urine Blood 1+ (NEGATIVE) 04/14/22 17:54 Urine Nitrite Negative (NEGATIVE) 04/14/22 17:54 Urine Bilirubin Negative (NEGATIVE) 04/14/22 17:54 Urine Urobilinogen Normal (NORMAL) 04/14/22 17:54 Ur Leukocyte Esterase Negative (NEGATIVE) 04/14/22 17:54 Urine RBC 0-2 /HPF (0-3) 04/14/22 17:54 Urine WBC 0-2 /HPF (0-5) 04/14/22 17:54 Ur Squamous Epith Cells Rare /HPF (NEGATIVE) 04/14/22 17:54 Urine Bacteria Negative /HPF (NEGATIVE) 04/14/22 17:54 Urine Mucus Few /HPF (NEGATIVE) 04/14/22 17:54 Ur Culture Indicated? No/not indicated 04/14/22 17:54 SARS-CoV-2 (PCR) Negative (NEGATIVE) 04/14/22 17:54 Influenza Type A (PCR) Negative (NEGATIVE) 04/14/22 17:54 Influenza Type B (PCR) Negative (NEGATIVE) 04/14/22 17:54 RSV (PCR) Negative (NEGATIVE) 04/14/22 17:54 Tissue Pathology To follow 04/15/22 13:38 - Assessment and Plan 2: acute cholecystitis ,sepsis . s/p Lap torsten .. . liver dysfunction .. on IV antibiotics .. medical consut regarding tachycardia and possible hyperthyroidism . will kep JOSE and follow next week on Tuesday ..
[2022-04-17] MEDS: D5 1/2 NS 1,000 ML 1,000 ML IV SCH ×3 (06:32→23:03)
[2022-04-17 06:36] LABS: ALANINE AMINOTRANSFERASE 102 Units/L (12-78); ALBUMIN 2.7 g/dL (3.4-5.0); ALKALINE PHOSPHATASE 117 Units/L (46-116); ASPARTATE AMINO TRANSFERASE 44 Units/L (15-37); BLOOD UREA NITROGEN 8 mg/dL (7-18); CARBON DIOXIDE 31.5 mmol/L (21-32); CHLORIDE 102 mmol/L (98-107); CREATININE 0.87 mg/dL (0.70-1.30); MAGNESIUM 1.7 mg/dL (1.7-2.9); SODIUM 137 mmol/L (136-145); TOTAL PROTEIN 6.2 g/dL (6.4-8.2); eGFR NON BLACK RACES > 60 (>60)
[2022-04-17 07:20] LABS: BAND NEUTROPHILS % 4 % (0-10); PLATELET MORPHOLOGY COMMENT NORMAL (NORMAL)
[2022-04-17] MEDS: MAGNESIUM SULFATE 1 GRAM/100 mL PREMIX 1 G/100 ML BAG IV PRN ×2 (08:10→11:36)
--- NOTE | 2022-04-17 10:53 | DR.H&P ---
H&P Allergies Allergies Allergy/AdvReac Type Severity Reaction Status Date / Time No Known Drug Allergies Allergy Verified 04/14/22 16:00 Past Medical History Past Medical History: GERD Past Surgical History Surgical History: Ortho Surgery Family History Family Medical History: Diabetes Mellitus, Cancer, Heart Failure and Hypertension Social History Does patient currently use any type of tobacco product: No Have you used tobacco products in the last 12 months: No Type of Tobacco Use: Dip How many years tobacco product used: 25 Does any household member use tobacco: No Alcohol Use: Occasionally Drug Use: Prescription Drugs Medications Home Medications: No Known Drug Allergies Allergy (Verified 04/14/22 16:00) CONTINUE taking the following medications meloxicam 15 mg tablet 1 tab PO QDAY 04/14/22 [History] omeprazole 40 mg capsule,delayed release 1 cap PO QAM 04/14/22 [History] tramadol 50 mg tablet 1 tab PO Q6H PRN 04/14/22 [History] Labs Result Diagrams: 04/17/22 05:31 04/17/22 09:33 Labs: 04/14/22 23:05 Blood Blood Culture - Preliminary 04/14/22 23:00 Blood Blood Culture - Preliminary Laboratory WBC 7.6 X10^3/uL (3.6-10.0) D 04/17/22 05:31 RBC 4.63 X10^6/uL (4.7-6.0) L 04/17/22 05:31 Hgb 14.0 g/dL (13.5-18.0) 04/17/22 05:31 Hct 39.9 % (42.0-54.0) L 04/17/22 05:31 MCV 86.2 fL (80.0-100.0) 04/17/22 05:31 MCH 30.3 pg (27.0-34.0) 04/17/22 05:31 MCHC 35.1 g/dL (33.0-35.0) H 04/17/22 05:31 RDW 13.6 % (11.6-16.5) 04/17/22 05:31 Plt Count 96 X10^3/uL (150.0-450.0) L 04/17/22 05:31 Plt Count Comment Decreased (ADEQUATE) 04/17/22 05:31 MPV 10.4 fL (7.4-11.0) 04/17/22 05:31 Neut % (Auto) 90.2 % (42.0-75.0) H 04/17/22 05:31 Lymph % (Auto) 3.6 % (21.0-51.0) L 04/17/22 05:31 [place] % (Auto) 4.4 % (0.0-13.0) 04/17/22 05:31 Eos % (Auto) 1.5 % (0.9-2.9) 04/17/22 05:31 Baso % (Auto) 0.3 % (0.2-1.0) 04/17/22 05:31 Neut # (Auto) 6.8 x10^3/uL (2.2-4.8) H 04/17/22 05:31 Lymph # (Auto) 0.3 X10^3/uL (1.3-2.9) L 04/17/22 05:31 [place] # (Auto) 0.3 x10^3/uL (0.3-0.8) 04/17/22 05:31 Eos # (Auto) 0.1 x10^3/uL (0.0-0.2) 04/17/22 05:31 Baso # (Auto) 0.0 X10^3/uL (0.0-0.1) 04/17/22 05:31 Absolute Nucleated RBC 0.0 /100WBC 04/17/22 05:31 Total Counted 100 04/17/22 05:31 Neutrophils % (Manual) 89 % (39-76) H 04/17/22 05:31 Band Neutrophils % 4 % (0-10) 04/17/22 05:31 Lymphocytes % (Manual) 3 % (13-43) L 04/17/22 05:31 Monocytes % (Manual) 3 % (4-9) L 04/17/22 05:31 Eosinophils % (Manual) 1 % (0-6) 04/17/22 05:31 Plt Morphology Comment Normal (NORMAL) 04/17/22 05:31 RBC Morphology Normal (NORMAL) 04/17/22 05:31 Sodium 137 mmol/L (136-145) 04/17/22 05:31 Corrected Sodium TNP 04/17/22 05:31 Potassium 3.2 mmol/L (3.5-5.1) L 04/17/22 09:33 Chloride 102 mmol/L (98-107) 04/17/22 05:31 Carbon Dioxide 31.5 mmol/L (21-32) 04/17/22 05:31 BUN 8 mg/dL (7-18) 04/17/22 05:31 Creatinine 0.87 mg/dL (0.70-1.30) 04/17/22 05:31 Est GFR (MDRD) Af Amer > 60 (>60) 04/17/22 05:31 Est GFR (MDRD) Non-Af > 60 (>60) 04/17/22 05:31 Glucose 99 mg/dL (65-99) 04/17/22 05:31 Calcium 8.0 mg/dL (8.5-10.1) L 04/17/22 05:31 Corrected Calcium 9.0 mg/dL (8.5-10.1) 04/17/22 05:31 Magnesium 1.7 mg/dL (1.7-2.9) 04/17/22 05:31 Total Bilirubin 2.30 mg/dL (0.2-1.0) H 04/17/22 05:31 AST 44 Units/L (15-37) H 04/17/22 05:31 ALT 102 Units/L (12-78) H 04/17/22 05:31 Alkaline Phosphatase 117 Units/L (46-116) H 04/17/22 05:31 Total Protein 6.2 g/dL (6.4-8.2) L 04/17/22 05:31 Albumin 2.7 g/dL (3.4-5.0) L 04/17/22 05:31 Globulin 3.5 g/dL (2.5-4.5) 04/17/22 05:31 Albumin/Globulin Ratio 0.8 Ratio (1.1-2.1) L 04/17/22 05:31 Amylase 39 Units/L (25-115) 04/14/22 16:46 Lipase 77 Units/L (73-393) 04/14/22 16:46 Free T4 1.68 ng/dL (0.76-1.46) H 04/15/22 05:48 Thyroxine (T4) 12.8 ug/dL (4.7-13.3) 04/15/22 05:48 TSH 3rd Generation 0.856 uIU/mL (0.358-3.74) 04/15/22 05:48 Specimen Type Clean catch urine 04/14/22 17:54 Urine Color Yellow (YELLOW) 04/14/22 17:54 Urine Appearance Clear (CLEAR) 04/14/22 17:54 Urine pH 5.0 (5.0 - 8.0) 04/14/22 17:54 Ur Specific [place] 1.025 (1.000-1.030) 04/14/22 17:54 Urine Protein 1+ (NEGATIVE) 04/14/22 17:54 Urine Glucose (UA) Negative (NEGATIVE) 04/14/22 17:54 Urine Ketones 3+ (NEGATIVE) 04/14/22 17:54 Urine Blood 1+ (NEGATIVE) 04/14/22 17:54 Urine Nitrite Negative (NEGATIVE) 04/14/22 17:54 Urine Bilirubin Negative (NEGATIVE) 04/14/22 17:54 Urine Urobilinogen Normal (NORMAL) 04/14/22 17:54 Ur Leukocyte Esterase Negative (NEGATIVE) 04/14/22 17:54 Urine RBC 0-2 /HPF (0-3) 04/14/22 17:54 Urine WBC 0-2 /HPF (0-5) 04/14/22 17:54 Ur Squamous Epith Cells Rare /HPF (NEGATIVE) 04/14/22 17:54 Urine Bacteria Negative /HPF (NEGATIVE) 04/14/22 17:54 Urine Mucus Few /HPF (NEGATIVE) 04/14/22 17:54 Ur Culture Indicated? No/not indicated 04/14/22 17:54 SARS-CoV-2 (PCR) Negative (NEGATIVE) 04/14/22 17:54 Influenza Type A (PCR) Negative (NEGATIVE) 04/14/22 17:54 Influenza Type B (PCR) Negative (NEGATIVE) 04/14/22 17:54 RSV (PCR) Negative (NEGATIVE) 04/14/22 17:54 Tissue Pathology To follow 04/15/22 13:38 Physical Exam Vital Signs: Temperature 98.9 F Pulse Rate [Right Radial] 102 Pulse Rate 121 Respiratory Rate 18 Blood Pressure [Right Arm] 137/67 Blood Pressure [Left Arm] 118/68 Blood Pressure 130/70 O2 Sat by Pulse Oximetry 96 Oriented: Normal
--- NOTE | 2022-04-17 10:54 | DR.CONSULT ---
CONSULT Consultation for Day of: Date: 04/17/22 Chief Complaint Chief Complaint: abdominal pain, gallstones Allergies Allergies Allergy/AdvReac Type Severity Reaction Status Date / Time No Known Drug Allergies Allergy Verified 04/14/22 16:00 History of Present Illness History of Present Illness: Mr Sanchez is a 37y/o male who presented with abdominal pain and abnormal imaging. CT showed dilated gallbladder and stranding. He was admitted for further management by surgery. Patient underwent lap cholecystectomy on 04/16/22. He is doing well today. He has been ambulating in the room. He reports improvement in appetite. His pain is well-controlled. He still has JOSE drain in place. He was noted to have tachycardia and slight elevation of Free T4 yesterday. Patient denies hx of thyroid disease. Thyroid U/S showed tiny nodules, no obvious large nodule or mass. TSH: 0.856 Free T4: 1.68 Plan: continue current care as per surgery, monitor JOSE output. Continue pain control. Replace K as per protocol. Patient's free T4 is slightly elevated. Denies hyperthyroid symptoms. Denies chest pain or SOB. Discussed with patient to have repeat thyroid panel done in 4 weeks and to follow up with PCP. Patient will f/u with surgery next week. Past Medical History Past Medical History: GERD Past Surgical History Surgical History: Ortho Surgery Family History Family Medical History: Diabetes Mellitus, Cancer, Heart Failure and Hypertension Social History Does patient currently use any type of tobacco product: No Have you used tobacco products in the last 12 months: No Type of Tobacco Use: Dip How many years tobacco product used: 25 Does any household member use tobacco: No Alcohol Use: Occasionally Drug Use: Prescription Drugs Medications Home Medications: No Known Drug Allergies Allergy (Verified 04/14/22 16:00) CONTINUE taking the following medications meloxicam 15 mg tablet 1 tab PO QDAY 04/14/22 [History] omeprazole 40 mg capsule,delayed release 1 cap PO QAM 04/14/22 [History] tramadol 50 mg tablet 1 tab PO Q6H PRN 04/14/22 [History] Review of Systems Constitutional: No Symptoms Reported ENT: No Symptoms Reported Respiratory: No Symptoms Reported Cardiovascular: No Symptoms Reported Gastrointestinal: Nausea and Abdominal Pain Musculoskeletal: No Symptoms Reported Skin: No Symptoms Reported Neurological: No Symptoms Reported Physical Exam Vital Signs: Temperature 98.9 F Pulse Rate [Right Radial] 102 Pulse Rate 121 Respiratory Rate 18 Blood Pressure [Right Arm] 137/67 Blood Pressure [Left Arm] 118/68 Blood Pressure 130/70 O2 Sat by Pulse Oximetry 96 Oriented: Normal Eyes: Normal Nose: Normal Respiratory: Clear Throughout Cardiovascular: Normal Auscultation: Bowel Sounds: Normal Palpation: Other (mild tenderness, JOSE drian intact with drainage ) Skin: Normal Musculoskeletal: Normal Psychiatric: Normal Mood Description: Calm Affect: Normal Speech Pattern: Clear and Appropriate Plan (1) Acute cholecystitis: Status: Acute (2) S/P laparoscopic cholecystectomy: Status: Acute (3) Tachycardia: Status: Acute (4) Abnormal thyroid function test: Status: Acute
[2022-04-17] MEDS: TYLENOL 325 MG TAB PO PRN (17:20)
[2022-04-17] MEDS: PHENERGAN INJ 25 MG IM PRN (20:22)
[2022-04-17] MEDS: MORPHINE SULFATE INJ 2 MG INJ IVP PRN (20:22)
[2022-04-17] MEDS: LEVAQUIN PREMIX IV 500 MG 500 MG/100 ML BAG IV SCH (20:23)
[2022-04-18] MEDS: D5 1/2 NS 1,000 ML 1,000 ML IV SCH ×2 (02:09→06:13)
[2022-04-18] MEDS: FLAGYL IV PREMIX 500 MG BAG 500 MG/100 ML BAG IV SCH (05:34)
[2022-04-18 06:20] LABS: BASOPHILS % (AUTO) 0.4 % (0.2-1.0); EOSINOPHILS # (AUTO) 0.1 x10^3/uL (0.0-0.2); EOSINOPHILS % (AUTO) 1.4 % (0.9-2.9); HEMATOCRIT 38.9 % (42.0-54.0); HEMOGLOBIN 13.6 g/dL (13.5-18.0); LYMPHOCYTES # (AUTO) 0.5 X10^3/uL (1.3-2.9); LYMPHOCYTES % (AUTO) 8.4 % (21.0-51.0); MEAN CORPUSCULAR HEMOGLOBIN 30.1 pg (27.0-34.0); MEAN CORPUSCULAR HGB CONC 35.1 g/dL (33.0-35.0); MEAN CORPUSCULAR VOLUME 85.9 fL (80.0-100.0); MEAN PLATELET VOLUME 9.5 fL (7.4-11.0); MONOCYTES # (AUTO) 0.5 x10^3/uL (0.3-0.8); MONOCYTES % (AUTO) 9.2 % (0.0-13.0); NEUTROPHILS # (AUTO) 4.5 x10^3/uL (2.2-4.8); NEUTROPHILS % (AUTO) 80.6 % (42.0-75.0); RED BLOOD COUNT 4.53 X10^6/uL (4.7-6.0); RED CELL DISTRIBUTION WIDTH 13.7 % (11.6-16.5); WHITE BLOOD COUNT 5.6 X10^3/uL (3.6-10.0)
[2022-04-18 06:23] LABS: ALANINE AMINOTRANSFERASE 76 Units/L (12-78); ALBUMIN 2.5 g/dL (3.4-5.0); ALKALINE PHOSPHATASE 134 Units/L (46-116); ASPARTATE AMINO TRANSFERASE 32 Units/L (15-37); BLOOD UREA NITROGEN 6 mg/dL (7-18); CALCIUM 7.7 mg/dL (8.5-10.1); CHLORIDE 104 mmol/L (98-107); COR CA(FOR HYPOALB) 8.9 mg/dL (8.5-10.1); CREATININE 0.84 mg/dL (0.70-1.30); MAGNESIUM 1.5 mg/dL (1.7-2.9); SODIUM 139 mmol/L (136-145); TOTAL PROTEIN 5.9 g/dL (6.4-8.2); eGFR NON BLACK RACES > 60 (>60)
[2022-04-18] MEDS: TYLENOL 325 MG TAB PO PRN (06:53)
[2022-04-18 08:04] VITALS: BP 140/86
[2022-04-18] MEDS ORDERED: K-DUR TAB 20 MEQ PO SCH (10:00)
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
--- NOTE | 2022-04-18 10:31 | PCM.PROG ---
Progress Note Progress Note for Day of Date of Exam: 04/18/22 Subjective Subjective: Patient seen at bedside, no events overnight. He is doing well. He has been ambulating in the room. He states abdominal pain is well controlled. His JOSE output has decreased. He reports good appetite. Denies N/V. He has been having BMs. Labs reviewed Plan: replace K, patient stable to be discharged home. He will f/u with PCP in one week. Advised patient to have thyroid panel repeated in 4 weeks. Denies symptoms. F/U with Dr Moyer as scheduled. Past Medical Family Social History Past Med/Fam/Surg Hx: No changes since H&P Allergies: Allergies No Known Drug Allergies Allergy (Verified 04/14/22 16:00) Review of Systems ROS: No change since H&P Vital Signs and I&O's Vital Signs: Temperature 98.1 F Pulse Rate [Right Radial] 111 Pulse Rate 121 Respiratory Rate 20 Blood Pressure [Right Arm] 140/86 Blood Pressure [Left Arm] 118/68 Blood Pressure 130/70 O2 Sat by Pulse Oximetry 96 Intake and Output: Intake & Output 04/15/22 04/16/22 04/17/22 04/18/22 23:59 23:59 23:59 23:59 Intake Total 7644 / 7644 3534 / 3534 3863 / 3863 1560 / 1560 Output Total 1909 / 1909 35 / 35 20 / Balance 5734 / 5734 3499 / 3499 3843 / 3843 1560 / 1560 Physical Exam Oriented: Normal Eyes: Normal Ear: Normal Nose: Normal Throat: Normal Respiratory: Normal Cardiovascular: Normal Auscultation: Bowel Sounds: Normal Tenderness: RUQ (soft abdomen , mild diffuse abdominal tendernes, BS+ JOSE drain intact) Skin: Normal Musculoskeletal: Normal Psychiatric: Normal Mood Description: Calm Affect: Normal Speech Pattern: Clear and Appropriate Laboratory and Diagnostics Result Diagrams: 04/18/22 05:10 04/18/22 05:10 Labs: 04/14/22 23:05 Blood Blood Culture - Preliminary 04/14/22 23:00 Blood Blood Culture - Preliminary Laboratory WBC 5.6 X10^3/uL (3.6-10.0) 04/18/22 05:10 RBC 4.53 X10^6/uL (4.7-6.0) L 04/18/22 05:10 Hgb 13.6 g/dL (13.5-18.0) 04/18/22 05:10 Hct 38.9 % (42.0-54.0) L 04/18/22 05:10 MCV 85.9 fL (80.0-100.0) 04/18/22 05:10 MCH 30.1 pg (27.0-34.0) 04/18/22 05:10 MCHC 35.1 g/dL (33.0-35.0) H 04/18/22 05:10 RDW 13.7 % (11.6-16.5) 04/18/22 05:10 Plt Count 118 X10^3/uL (150.0-450.0) L 04/18/22 05:10 Plt Count Comment Decreased (ADEQUATE) 04/17/22 05:31 MPV 9.5 fL (7.4-11.0) 04/18/22 05:10 Neut % (Auto) 80.6 % (42.0-75.0) H 04/18/22 05:10 Lymph % (Auto) 8.4 % (21.0-51.0) L 04/18/22 05:10 [place] % (Auto) 9.2 % (0.0-13.0) 04/18/22 05:10 Eos % (Auto) 1.4 % (0.9-2.9) 04/18/22 05:10 Baso % (Auto) 0.4 % (0.2-1.0) 04/18/22 05:10 Neut # (Auto) 4.5 x10^3/uL (2.2-4.8) 04/18/22 05:10 Lymph # (Auto) 0.5 X10^3/uL (1.3-2.9) L 04/18/22 05:10 [place] # (Auto) 0.5 x10^3/uL (0.3-0.8) 04/18/22 05:10 Eos # (Auto) 0.1 x10^3/uL (0.0-0.2) 04/18/22 05:10 Baso # (Auto) 0.0 X10^3/uL (0.0-0.1) 04/18/22 05:10 Absolute Nucleated RBC 0.0 /100WBC 04/18/22 05:10 Total Counted 100 04/17/22 05:31 Neutrophils % (Manual) 89 % (39-76) H 04/17/22 05:31 Band Neutrophils % 4 % (0-10) 04/17/22 05:31 Lymphocytes % (Manual) 3 % (13-43) L 04/17/22 05:31 Monocytes % (Manual) 3 % (4-9) L 04/17/22 05:31 Eosinophils % (Manual) 1 % (0-6) 04/17/22 05:31 Plt Morphology Comment Normal (NORMAL) 04/17/22 05:31 RBC Morphology Normal (NORMAL) 04/17/22 05:31 Sodium 139 mmol/L (136-145) 04/18/22 05:10 Corrected Sodium TNP 04/18/22 05:10 Potassium 3.4 mmol/L (3.5-5.1) L 04/18/22 05:10 Chloride 104 mmol/L (98-107) 04/18/22 05:10 Carbon Dioxide 29.0 mmol/L (21-32) 04/18/22 05:10 BUN 6 mg/dL (7-18) L 04/18/22 05:10 Creatinine 0.84 mg/dL (0.70-1.30) 04/18/22 05:10 Est GFR (MDRD) Af Amer > 60 (>60) 04/18/22 05:10 Est GFR (MDRD) Non-Af > 60 (>60) 04/18/22 05:10 Glucose 103 mg/dL (65-99) H 04/18/22 05:10 Calcium 7.7 mg/dL (8.5-10.1) L 04/18/22 05:10 Corrected Calcium 8.9 mg/dL (8.5-10.1) 04/18/22 05:10 Magnesium 1.5 mg/dL (1.7-2.9) L 04/18/22 05:10 Total Bilirubin 1.10 mg/dL (0.2-1.0) H 04/18/22 05:10 AST 32 Units/L (15-37) 04/18/22 05:10 ALT 76 Units/L (12-78) 04/18/22 05:10 Alkaline Phosphatase 134 Units/L (46-116) H 04/18/22 05:10 Total Protein 5.9 g/dL (6.4-8.2) L 04/18/22 05:10 Albumin 2.5 g/dL (3.4-5.0) L 04/18/22 05:10 Globulin 3.4 g/dL (2.5-4.5) 04/18/22 05:10 Albumin/Globulin Ratio 0.7 Ratio (1.1-2.1) L 04/18/22 05:10 Amylase 39 Units/L (25-115) 04/14/22 16:46 Lipase 77 Units/L (73-393) 04/14/22 16:46 Free T4 1.68 ng/dL (0.76-1.46) H 04/15/22 05:48 Thyroxine (T4) 12.8 ug/dL (4.7-13.3) 04/15/22 05:48 TSH 3rd Generation 0.856 uIU/mL (0.358-3.74) 04/15/22 05:48 Specimen Type Clean catch urine 04/14/22 17:54 Urine Color Yellow (YELLOW) 04/14/22 17:54 Urine Appearance Clear (CLEAR) 04/14/22 17:54 Urine pH 5.0 (5.0 - 8.0) 04/14/22 17:54 Ur Specific [place] 1.025 (1.000-1.030) 04/14/22 17:54 Urine Protein 1+ (NEGATIVE) 04/14/22 17:54 Urine Glucose (UA) Negative (NEGATIVE) 04/14/22 17:54 Urine Ketones 3+ (NEGATIVE) 04/14/22 17:54 Urine Blood 1+ (NEGATIVE) 04/14/22 17:54 Urine Nitrite Negative (NEGATIVE) 04/14/22 17:54 Urine Bilirubin Negative (NEGATIVE) 04/14/22 17:54 Urine Urobilinogen Normal (NORMAL) 04/14/22 17:54 Ur Leukocyte Esterase Negative (NEGATIVE) 04/14/22 17:54 Urine RBC 0-2 /HPF (0-3) 04/14/22 17:54 Urine WBC 0-2 /HPF (0-5) 04/14/22 17:54 Ur Squamous Epith Cells Rare /HPF (NEGATIVE) 04/14/22 17:54 Urine Bacteria Negative /HPF (NEGATIVE) 04/14/22 17:54 Urine Mucus Few /HPF (NEGATIVE) 04/14/22 17:54 Ur Culture Indicated? No/not indicated 04/14/22 17:54 SARS-CoV-2 (PCR) Negative (NEGATIVE) 04/14/22 17:54 Influenza Type A (PCR) Negative (NEGATIVE) 04/14/22 17:54 Influenza Type B (PCR) Negative (NEGATIVE) 04/14/22 17:54 RSV (PCR) Negative (NEGATIVE) 04/14/22 17:54 Tissue Pathology To follow 04/15/22 13:38 Plan (1) Acute cholecystitis: Status: Acute (2) S/P laparoscopic cholecystectomy: Status: Acute (3) Tachycardia: Status: Acute (4) Abnormal thyroid function test: Status: Acute
== END 2022-04-18 10:55 | disposition home or self-care (01) | DRG 419 ==
LOC: MED/SURG 15:57 → ER 15:57 → MED/SURG 19:54
PROVIDERS: ADMIT Surgery; ATTEND Surgery
DX: R00.0 Tachycardia, unspecified; R10.11 Right upper quadrant pain; E05.80 Other thyrotoxicosis without thyrotoxic crisis or storm; K76.89 Other specified diseases of liver; R94.31 Abnormal electrocardiogram [ECG] [EKG]; K82.8 Other specified diseases of gallbladder; R11.2 Nausea with vomiting, unspecified; Z20.822 Contact with and (suspected) exposure to COVID-19; R94.5 Abnormal results of liver function studies; K81.0 Acute cholecystitis; R10.13 Epigastric pain